=== PATIENT | male | born 1955 | race Caucasian/White ===

== ENCOUNTER 2023-01-27 16:18 | Emergency (ER) | payer MEDICARE, OTHER ==
--- NOTE | 2023-01-27 16:41 | ED Physician Documentation ---
PD HPI URI - Stated complaint Stated Complaint: COUGH,SOA - Chief complaint Chief Complaint: General - History obtained from History obtained from: Patient - History of Present Illness Timing - onset: How many weeks ago (1) Timing duration: Weeks (1) Timing details: Gradual onset, Still present (He started with a cough and wheezing and short of breath about a week ago. General malaise. No fevers per se. Coincidentally had an appoint with his primary care and told likely virus. Increased cough and seen at walk-in clinic several days ago and prescribed albuterol inhaler, 1 dose steroid.) Associated symptoms: Chills, Nasal congestion, Dry cough, Chest pain (pain with coughing right side shoulder area and right upper abd. No pain with movement nor eating.), Dyspnea (with wheezing). No: Fever, Productive cough Contributing factors: Other (history of pacemaker. No CHF. No COPD. Has inhaler at home to use PRN illness. History of renal insufficiency with recent creatinine 3.). No: Sick contact, COPD / asthma Improves by: MDI/nebulizer, Other (he did notice feeling lightheaded today.) Worsened by: Activity Similar symptoms before: Has not had sx before Recently seen: Clinic Review of Systems Constitutional: reports: Chills, Myalgias, Fatigue (feeling weak and lightheaded today.). denies: Fever Nose: reports: Congestion. denies: Rhinorrhea / runny nose Throat: denies: Sore throat Cardiac: reports: Chest pain / pressure (the past 1-2 days with coughing.). denies: Palpitations, Pedal edema, Calf pain Respiratory: reports: Dyspnea, Cough, Wheezing GI: reports: Nausea. denies: Abdominal Pain, Vomiting, Diarrhea Musculoskeletal: denies: Neck pain, Back pain Neurologic: reports: Generalized weakness. 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 ), Other (pacemaker) Respiratory: None Neuro: None Endocrine/Autoimmune: None - Present Medications Home Medications: Ambulatory Orders Medication Instructions Recorded Confirmed Aspirin [Lamont Aspirin] 81 mg PO DAILY 01/27/23 01/27/23 Cholesterol Med 20 mg PO DAILY 01/27/23 Rosuvastatin Calcium 20 mg PO DAILY 01/27/23 - Allergies Allergies/Adverse Reactions: Allergies Allergy/AdvReac Type Severity Reaction Status Date / Time No Known Drug Allergies Allergy Verified 01/27/23 16:23 PD ED PE NORMAL - Vitals Vital signs reviewed: Yes (BP slightly low) - General General: Alert and oriented X 3, No acute distress, Well developed/nourished - Neck Neck: Supple, no meningeal sign, No adenopathy - Cardiac Cardiac: RRR, No murmur - Respiratory Respiratory: No respiratory distress. No: Clear bilaterally (general exp wheezing. Coarse sound right lower. No fine crackles. Normal conversation ability. No accessory muscle use. ) - Abdomen Abdomen: Soft, Non tender, No organomegaly - Derm Derm: Normal color, Warm and dry - Extremities Extremities: Normal ROM s pain, No edema, No calf tenderness / cord - Neuro Neuro: Alert and oriented X 3, No motor deficit, Normal speech Results - Vitals Vitals: Vital Signs - 24 hr 01/27/23 01/27/23 01/27/23 16:23 16:35 18:02 Temperature 36.5 C Heart Rate 60 62 Respiratory 16 18 16 Rate Blood Pressure 96/66 O2 Saturation 98 Oxygen O2 Source Room air - Labs Labs: Laboratory Tests 01/27/23 01/27/23 01/27/23 17:14 17:14 17:14 WBC 6.3 RBC 3.84 L Hgb 11.0 L Hct 33.0 L MCV 85.9 MCH 28.6 MCHC 33.3 RDW 14.2 Plt Count 223 MPV 10.0 Neut # (Auto) 4.6 Lymph # (Auto) 1.0 L [place] # (Auto) 0.6 Eos # (Auto) 0.1 Baso # (Auto) 0.0 Absolute Nucleated RBC 0.00 Nucleated RBC % 0.0 Sodium 136 Potassium 4.4 Chloride 106 Carbon Dioxide 23 Anion Gap 7.0 BUN 60 H Creatinine 3.3 H Estimated GFR (MDRD) 19 L Glucose 108 H Lactic Acid Calcium 9.0 Total Bilirubin 0.5 AST 24 ALT 22 Alkaline Phosphatase 200 H Troponin I High Sens 56.5 H* B-Natriuretic Peptide Total Protein 6.4 L Albumin 3.7 Globulin 2.7 Albumin/Globulin Ratio 1.4 Lipase 59 H 01/27/23 01/27/23 17:14 17:14 WBC RBC Hgb Hct MCV MCH MCHC RDW Plt Count MPV Neut # (Auto) Lymph # (Auto) [place] # (Auto) Eos # (Auto) Baso # (Auto) Absolute Nucleated RBC Nucleated RBC % Sodium Potassium Chloride Carbon Dioxide Anion Gap BUN Creatinine Estimated GFR (MDRD) Glucose Lactic Acid 0.7 Calcium Total Bilirubin AST ALT Alkaline Phosphatase Troponin I High Sens B-Natriuretic Peptide 134 H Total Protein Albumin Globulin Albumin/Globulin Ratio Lipase - Rads (name of study) chest xray Relevant Findings:: Prelim report reviewed (lower infiltrate. no effusion. no vascular congestion.), EMP independent interpretation of test (lower infiltrates bilaterally c/w likely pneumonia. ), See rad report PD Medical Decision Making - ED course Complexity details: reviewed results (The patient was having a slightly lower blood pressure and also some chest pain though it was more pleuritic and with coughing. Seems muscular. However we did do BNP and troponin. Also white count and lactate to evaluate for potential sepsis especially in light of a slightly low blood pressure.), considered differential (Progressive cough with now pleuritic pain. Chest x-ray will be obtained to evaluate for progression to pneumonia. He is wheezy though his sats are good and we can do a nebulizer. No history of COPD but does have wheezing. Consider steroid as well.), d/w patient Reviewed Lab Results: White count and lactate are normal. No signs of obvious sepsis. His creatinine is 3.3 with his stated baseline recently of 3. Main electrolytes are good. His troponin is slightly elevated at 56. This can be partly influenced by his renal insufficiency with a creatinine of 3.3. However concern would be for some stress on the cardiovascular system related to his coughing and likely developing pneumonia. We will repeat the troponin in a couple of hours. If its plateaued, then it may be just some stress on this cardiovascular system and again some influence from his renal insufficiency. If escalating level then more concerning for heart injury per se. His blood pressure was also slightly low which likely is volume related as there is no indication of sepsis per se. He is given IV fluids and we are still reassessing his blood pressure with that.
[2023-01-27] MEDS ORDERED: SODIUM CHLORIDE 0.9% 500 ML IV STA ×2 (17:05→18:00)
[2023-01-27] MEDS ORDERED: ALBUTEROL NEB 2.5 MG/3 ML INH STA (17:06)
[2023-01-27] MEDS ORDERED: DEXAMETHASONE 10 MG/ML VIAL IVP STA (17:06)
[2023-01-27] MEDS ORDERED: KETOROLAC 15 MG/ML VIAL IVP STA (17:07)
[2023-01-27 17:24] LABS: BASOPHILS % (AUTO) 0.2 %; EOSINOPHILS # (AUTO) 0.1 10^3/uL (0.0-0.7); EOSINOPHILS % (AUTO) 1.4 %; LYMPHOCYTES % (AUTO) 16.5 %; MEAN CORPUSCULAR HEMOGLOBIN 28.6 pg (27.0-31.0); MEAN CORPUSCULAR HGB CONC 33.3 g/dL (32.0-36.0); MEAN CORPUSCULAR VOLUME 85.9 fL (80.0-94.0); MONOCYTES # (AUTO) 0.6 10^3/uL (0.0-1.0); MONOCYTES % (AUTO) 8.8 %; NEUTROPHILS # (AUTO) 4.6 10^3/uL (1.5-6.6); NEUTROPHILS % (AUTO) 72.8 %; PLT - PLATELET COUNT 223 10^3/uL (130-450); RED BLOOD COUNT 3.84 10^6/uL (4.70-6.10); RED CELL DISTRIBUTION WIDTH 14.2 % (12.0-15.0); WHITE BLOOD COUNT 6.3 x10^3/uL (4.8-10.8)
--- NOTE | 2023-01-27 17:28 | XRAY Report ---
PROCEDURE: Chest 1 View X-Ray INDICATIONS: chest pain TECHNIQUE: One view of the chest was acquired. COMPARISON: None. FINDINGS: Surgical changes and devices: There is a cardiac pacemaker in expected position. Lungs and pleura: Left basilar opacities may be infiltrate or atelectasis. No pleural effusions or p neumothorax. Mediastinum: Mediastinal contours appear normal. Heart size is normal. Bones and chest wall: No suspicious bony lesions. Overlying soft tissues appear unremarkable. IMPRESSION: Left lower lobe opacity may be pneumonia versus atelectasis. Recommend clinical correlation. Reviewed by: Clifton Wild MD on 01/27/2023 5:26 PM PDT Approved by: Clifton Wild MD on 01/27/2023 5:26 PM PDT Station ID: [id number]
[2023-01-27 17:33] LABS: ALBUMIN 3.7 g/dL (3.2-5.5); ALBUMIN/GLOBULIN RATIO 1.4 (1.0-2.2); BILIRUBIN,TOTAL 0.5 mg/dL (0.2-1.0); CREATININE 3.3 mg/dL (0.6-1.2); POTASSIUM 4.4 mmol/L (3.5-5.0); TOTAL PROTEIN 6.4 g/dL (6.7-8.2)
[2023-01-27] MEDS ORDERED: AMOX/CLAV 875 MG/125 MG TABLET PO STA (17:45)
[2023-01-27] MEDS ORDERED: HYDROcod/ACETAM 5/325 MG TABLET PO STA (20:27)
[2023-01-27] MEDS ORDERED: DOXYCYCLINE 100 MG TABLET PO STA (20:27)
--- NOTE | 2023-01-27 20:31 | ED Physician Documentation ---
ED Addendum - Addendum Addendum: 01/27/23 20:28 Patient was signed out to me by Dr. Israel awaiting repeat troponin. Repeat troponin is lower than the first. Likely chronic troponin leak from his chronic kidney disease. Patient is well-appearing, nontoxic. Afebrile. He he is not hypoxic. He is not audibly wheezing. Appears to have pneumonia on chest x-ray. We will place him on Augmentin and doxycycline. He is also having chest wall pain from coughing, we will place him on hydrocodone for this. He has a inhaler and he was given a spacer and spacer teaching. Patient will follow-up with his doctor in 1 week if he is not feeling better. Patient counseled regarding signs and symptoms for which I believe and urgent re-evaluation would be necessary. Patient with good understanding of and agreement to plan and is comfortable going home at this time This document was made in part using voice recognition software. While efforts are made to proofread this document, sound alike and grammatical errors may occur. Departure - Departure Disposition: 01 Home, Self Care Clinical Impression: Pneumonia Qualifiers: Pneumonia type: due to unspecified organism Laterality: unspecified laterality Lung location: unspecified part of lung Qualified Code(s): J18.9 - Pneumonia, unspecified organism Condition: Good Instructions: ED Pneumonia Adult Follow-Up: NAYLA MARSHALL [Primary Care Provider] - Within 1 week Prescriptions: Amox/Clav 875/125 [Augmentin] 1 tab PO Q12H #20 tablet predniSONE [Deltasone] 40 mg PO DAILY #10 tablet Doxycycline Monohydrate 100 mg PO BID #20 cap HYDROcod/ACETAM 5/325 [Triplett 5/325] 1 - 2 ea PO Q6H PRN #14 tablet PRN Reason: Pain Comments: Your prescriptions were sent to [facility] on [address] in [place]. You appear to have pneumonia on your chest x-ray today. If you are not feeling better in 1 week, you should have a repeat chest x-ray with your doctor. Please use your inhaler with the spacer as shown tonight. Please take all antibiotics until gone. You can use the pain medication as needed at home. The cough should improve as the pneumonia improves. I am prescribing a short course of narcotic pain medication for you. These are potentially dangerous and addictive medications that should be used carefully. These medications may constipate you. Take an [id number] stool softener (docusate) twice daily with plenty of water while taking these medications. If you go 24 hours without a bowel movement, take [id number] miralax, per package instructions. Do not drink or drive while taking these medications. If you received narcotic or sedating medications while in the emergency department, do not drive for 24 hours. Store this medication in a safe, secure place and out of reach of children. It is a violation of federal law to give or sell this medication to another person or to use in a manner other than prescribed. The ED will not refill narcotic prescriptions, including prescriptions lost or stolen. To dispose of unwanted medications: 1. [facility] at [address] in [place] has a medication drop box. They accept prescription medications (in pill form) Tuesday through Tuesday 9:00 a.m. to 5:00 p.m. 2. The [facility] [employer] accepts prescription medications (in pill form only) for disposal year round. Call for more information. 3. Contact the [facility] for the next [facility] sponsored prescription drug collection event. , [phone], or [phone];
[2023-01-27 20:47] VITALS: BP 99/63
== END 2023-01-27 20:55 | disposition home or self-care (01) ==
LOC: ED 16:18
DX: J18.9 Pneumonia, unspecified organism (principal); I95.9 Hypotension, unspecified; N18.9 Chronic kidney disease, unspecified
CPT/HCPCS: 36415; 71045; 80053; 83605; 83690; 83880; 84484; 85025; 93005; 94640; 99281; 99284; A9270

== ENCOUNTER 2023-07-10 20:38 | Outpatient (CLI) | payer MEDICARE, OTHER | END 2023-07-10 23:59 | disposition critical access hospital (66) | LOC: EMS 20:38 | DX: R53.81 Other malaise (principal); R53.1 Weakness; R09.89 Other specified symptoms and signs involving the circulatory and respiratory systems; R61 Generalized hyperhidrosis | CPT/HCPCS: A0425; A0427 ==

== ENCOUNTER 2023-07-10 20:56 | Emergency (ER) | payer MEDICARE, OTHER ==
[2023-07-10 21:11] LABS: BASOPHILS % (AUTO) 0.1 %; EOSINOPHILS # (AUTO) 0.1 10^3/uL (0.0-0.7); EOSINOPHILS % (AUTO) 1.4 %; LYMPHOCYTES # (AUTO) 1.3 10^3/uL (1.5-3.5); LYMPHOCYTES % (AUTO) 17.3 %; MEAN CORPUSCULAR HEMOGLOBIN 30.4 pg (27.0-31.0); MEAN CORPUSCULAR HGB CONC 29.9 g/dL (32.0-36.0); MEAN CORPUSCULAR VOLUME 101.9 fL (80.0-94.0); MEAN PLATELET VOLUME 10.3 fL (7.4-11.4); MONOCYTES # (AUTO) 0.6 10^3/uL (0.0-1.0); MONOCYTES % (AUTO) 8.4 %; NEUTROPHILS # (AUTO) 5.3 10^3/uL (1.5-6.6); NEUTROPHILS % (AUTO) 72.4 %; NRBC ABSOLUTE COUNT (AUTO) 0.03 x10^3/uL; NUCLEATED RED BLOOD CELLS AUTO 0.4 /100WBC; PLT - PLATELET COUNT 182 10^3/uL (130-450); RED BLOOD COUNT 1.61 10^6/uL (4.70-6.10); RED CELL DISTRIBUTION WIDTH 18.5 % (12.0-15.0); WHITE BLOOD COUNT 7.4 x10^3/uL (4.8-10.8)
--- NOTE | 2023-07-10 21:13 | ED Physician Documentation ---
History of Present Illness - Stated complaint Stated Complaint: AMS,WEAKNESS, GASTRIC CA - History obtained from History obtained from: Patient, EMS - Additonal information Additional information: 68-year-old male with history of gastric cancer, chronic renal failure, coronary artery disease status post stent, pacemaker, unspecified obstructive lung disease with home albuterol inhaler recent transfusion of 8 units of PRBC 2 weeks ago in [place] presents with altered mental status, weakness prompting EMS call this evening. Patient reports he has been having dark stools. Blood pressure 56/27 on scene, improving status post 1.5 L of normal saline to 82/32 1 most recent blood pressure. Also with glucose 238 without prior history of diabetes or hyperglycemia. Patient denies abdominal pain, nausea, vomiting, blood in stool. Denies urinary symptoms or back pain. Denies fever. 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 ), Other (pacemaker) Respiratory: None Neuro: None Endocrine/Autoimmune: None GI: None : None HEENT: None Psych: Depression Musculoskeletal: None Derm: None - Past Surgical History Past Surgical History: Yes General: Other Ortho: Other Cardiovascular: Coronary stent HEENT: Tonsil/Adenoidectomy - Present Medications Home Medications: Ambulatory Orders Medication Instructions Recorded Confirmed Aspirin [Labette Aspirin] 81 mg PO DAILY 01/27/23 07/10/23 Cholesterol Med 20 mg PO DAILY 01/27/23 Rosuvastatin Calcium 20 mg PO DAILY 01/27/23 07/10/23 ARIPiprazole [Aripiprazole] 10 mg PO DAILY 07/10/23 07/10/23 Amlodipine Besylate [Norvasc] 2.5 mg PO DAILY 07/10/23 07/10/23 Ferrous Sulfate 1 tab PO DAILY 07/10/23 07/10/23 Magnesium Oxide [Magnesium] 400 mg PO DAILY 07/10/23 07/10/23 Ondansetron [Ondansetron Odt] 8 mg PO Q8HR PRN 07/10/23 07/10/23 Prochlorperazine Maleate 10 mg PO Q6HR PRN 07/10/23 07/10/23 Sertraline HCl 100 mg PO DAILY 07/10/23 07/10/23 lamoTRIgine [LaMICtal] 50 mg PO DAILY 07/10/23 07/10/23 lamoTRIgine [Lamictal] 300 mg PO DAILY 07/10/23 07/10/23 oxyCODONE [Roxicodone] 5 mg PO Q6HR PRN 07/10/23 07/10/23 - Allergies Allergies/Adverse Reactions: Allergies Allergy/AdvReac Type Severity Reaction Status Date / Time No Known Drug Allergies Allergy Verified 07/10/23 22:44 - Social History Does the pt smoke?: No Smoking Status: Never smoker Does the pt drink ETOH?: Yes Does the pt have substance abuse?: No - Immunizations Immunizations are current?: Yes - POLST Patient has POLST: No PD ED PE NORMAL - Vitals Vital signs reviewed: Yes - General General: Alert and oriented X 3, No acute distress, Other (Deconditioned appearing) - HEENT HEENT: Atraumatic, PERRL, EOMI - Neck Neck: Supple, no meningeal sign - Cardiac Cardiac: RRR - Respiratory Respiratory: No respiratory distress, Clear bilaterally - Abdomen Abdomen: Non tender, Other (Mildly distended) - Back Back: No CVA TTP - Derm Derm: Normal color, Warm and dry - Neuro Neuro: Alert and oriented X 3 Results - Vitals Vitals: Vital Signs - 24 hr 07/10/23 07/10/23 07/10/23 21:37 21:45 22:30 Temperature 36.3 C L 36.3 C L 36.2 C L Heart Rate 80 80 Heart Rate [ 74 Monitoring electrodes] Respiratory 18 18 22 Rate Blood Pressure 88/53 L 88/53 L Blood Pressure 105/54 L [Left Brachial artery] O2 Saturation 100 100 100 07/10/23 07/10/23 07/10/23 22:49 23:00 23:15 Temperature 36.2 C L 37.1 C Heart Rate 71 73 Heart Rate [ 73 72 Monitoring electrodes] Respiratory 21 23 21 Rate Blood Pressure 107/56 L 101/62 Blood Pressure 107/56 L [Left Brachial artery] O2 Saturation 100 100 100 07/10/23 07/11/23 07/11/23 23:59 00:15 00:26 Temperature 36.3 C L 36 C L 36.1 C L Heart Rate Heart Rate [ 74 69 71 Monitoring electrodes] Respiratory 21 21 23 Rate Blood Pressure Blood Pressure 123/64 114/95 H 120/69 [Left Brachial artery] O2 Saturation 100 100 100 07/11/23 07/11/23 07/11/23 00:29 00:50 01:05 Temperature 36.3 C L 36.6 C Heart Rate 69 Heart Rate [ 82 65 Monitoring electrodes] Respiratory 22 18 24 Rate Blood Pressure 114/95 H Blood Pressure 143/72 H 137/85 H [Left Brachial artery] O2 Saturation 100 100 100 07/11/23 07/11/23 07/11/23 01:06 01:20 02:00 Temperature 36.3 C L Heart Rate 65 70 Heart Rate [ 68 Monitoring electrodes] Respiratory 22 21 22 Rate Blood Pressure 138/81 H 141/70 H Blood Pressure 128/78 [Left Brachial artery] O2 Saturation 100 100 100 07/11/23 07/11/23 07/11/23 02:40 03:00 03:30 Temperature Heart Rate 67 69 67 Heart Rate [ Monitoring electrodes] Respiratory 20 18 16 Rate Blood Pressure 134/67 H 127/70 144/86 H Blood Pressure [Left Brachial artery] O2 Saturation 100 100 99 07/11/23 07/11/23 07/11/23 04:00 04:30 05:00 Temperature Heart Rate 67 70 69 Heart Rate [ Monitoring electrodes] Respiratory 16 19 15 Rate Blood Pressure 147/82 H 135/75 H 124/63 Blood Pressure [Left Brachial artery] O2 Saturation 100 100 100 07/11/23 06:43 Temperature Heart Rate 64 Heart Rate [ Monitoring electrodes] Respiratory 17 Rate Blood Pressure 131/72 H Blood Pressure [Left Brachial artery] O2 Saturation 94 Oxygen O2 Source Room air - Labs Labs: Laboratory Tests 07/10/23 07/10/23 07/10/23 21:05 21:05 21:05 WBC 7.4 RBC 1.61 L Hgb 4.9 L* Hct 16.4 L* MCV 101.9 H MCH 30.4 MCHC 29.9 L RDW 18.5 H Plt Count 182 MPV 10.3 Neut # (Auto) 5.3 Lymph # (Auto) 1.3 L [place] # (Auto) 0.6 Eos # (Auto) 0.1 Baso # (Auto) 0.0 Absolute Nucleated RBC 0.03 Nucleated RBC % 0.4 PT INR Sodium 139 Potassium 3.6 Chloride 115 H Carbon Dioxide 12 L* Anion Gap 12.0 BUN 53 H Creatinine 2.6 H Estimated GFR (MDRD) 25 L Glucose 187 H Calcium 7.7 L Total Bilirubin 0.3 AST 15 ALT 9 L Alkaline Phosphatase 92 Total Protein 4.4 L Albumin 3.0 L Globulin 1.4 L Albumin/Globulin Ratio 2.1 Lipase 97 H Blood Type Blood Type Recheck A POSITIVE Antibody Screen Crossmatch IS Only 07/10/23 07/10/23 07/11/23 21:26 21:26 03:05 WBC 6.0 RBC 2.29 L Hgb 6.6 L* Hct 20.2 L MCV 88.2 MCH 28.8 MCHC 32.7 RDW 17.2 H Plt Count 131 MPV 9.7 Neut # (Auto) 4.9 Lymph # (Auto) 0.6 L [place] # (Auto) 0.4 Eos # (Auto) 0.0 Baso # (Auto) 0.0 Absolute Nucleated RBC 0.00 Nucleated RBC % 0.0 PT 13.7 H INR 1.3 H Sodium Potassium Chloride Carbon Dioxide Anion Gap BUN Creatinine Estimated GFR (MDRD) Glucose Calcium Total Bilirubin AST ALT Alkaline Phosphatase Total Protein Albumin Globulin Albumin/Globulin Ratio Lipase Blood Type A POSITIVE Blood Type Recheck Antibody Screen NEGATIVE Crossmatch IS Only See Detail 07/11/23 03:05 WBC RBC Hgb Hct MCV MCH MCHC RDW Plt Count MPV Neut # (Auto) Lymph # (Auto) [place] # (Auto) Eos # (Auto) Baso # (Auto) Absolute Nucleated RBC Nucleated RBC % PT INR Sodium 140 Potassium 3.8 Chloride 117 H Carbon Dioxide 15 L Anion Gap 8.0 BUN 51 H Creatinine 2.5 H Estimated GFR (MDRD) 26 L Glucose 113 H Calcium 7.5 L Total Bilirubin AST ALT Alkaline Phosphatase Total Protein Albumin Globulin Albumin/Globulin Ratio Lipase Blood Type Blood Type Recheck Antibody Screen Crossmatch IS Only PD Medical Decision Making - ED course ED course: 68-year-old man with history of gastric cancer and multiorgan disease presents with hypotension in the setting confusion and weakness tonight after being transfused 8 units of PRBC in [place] for GE junction bleeding tumor 2 weeks ago. CBC, abdominal panel, coags, type and screen ordered and plan is for blood transfusion pending h &h given patient is symptomatically improved with good BP on arrival. Patient anemic with Hb 4.9. d/w Dr. Narayan, surgeon communications systems engineer who recommends transfer to higher level facility since patient has complicated gastric cancer. He states it is reasonable to admit for blood transfusions with understanding that if he needs emergent gastrectomy he will need transfer. as of now patient is asymptomatic with normotensive vitals. 3U PRBC ordered. Patient hypotensive 70s/40s. levophed drip ordered and will prep PRBC stat for rapid transfusion. d/w transfer center and ICU attending to call back. Patient has been tolerating blood transfusion without need for levophed drip thus far. d/w oncologist Dr. Hamilton and MICU attending Dr. Hamilton at - Dr. Hamilton requesting emergent transfer. Dr. Hamilton accepts patient in transfer but she states due to high volumes with is unable to provide a bed for him at this time. She requests we reach back out in AM. Plan to transfuse overnight and endorse to incoming daytime ED MD at 7am shift change. - Critical Care Time(min): 60 Time Includes: Direct patient care, Review records, Reassess patient, Document care, Coordinate care, Medical consult Data interpretation: See progress note Procedures included in critical care time: See progress note Procedures excluded from critical care time: See progress note Departure - Departure Clinical Impression: Hypotension, Weakness, Confusion, Anemia Condition: Fair Forms: PCP List
[2023-07-10 21:14] LABS: HGB - HEMOGLOBIN 4.9 g/dL (14.0-18.0)
[2023-07-10 21:15] LABS: HCT - HEMATOCRIT 16.4 % (42.0-52.0)
[2023-07-10 21:33] LABS: ALBUMIN/GLOBULIN RATIO 2.1 (1.0-2.2); BILIRUBIN,TOTAL 0.3 mg/dL (0.2-1.0); CALCIUM 7.7 mg/dL (8.5-10.3); CREATININE 2.6 mg/dL (0.6-1.3); POTASSIUM 3.6 mmol/L (3.5-4.5); TOTAL PROTEIN 4.4 g/dL (6.4-8.9)
[2023-07-10 22:10] LABS: INR 1.3 (0.8-1.2); PT - PROTHROMBIN TIME 13.7 secs (9.9-12.6)
[2023-07-10] MEDS ORDERED: NOREPINEPHRINE/0.9 % NS 8 MG/250 ML BAG IV SCH (23:00)
[2023-07-10] MEDS ORDERED: iohexoL-300 100 ML VIAL IVP ONE (23:54)
[2023-07-11] MEDS ORDERED: ACETAMINOPHEN 500 MG TABLET PO PRN (00:23)
[2023-07-11] MEDS ORDERED: ONDANSETRON 4 MG/2 ML VIAL IVP PRN (00:23)
--- NOTE | 2023-07-11 01:23 | CT Report ---
PROCEDURE: ANGIO ABDOMEN W/WO INDICATIONS: GIB, gastric cancer, bleeding gastric mass, weak CONTRAST: : Intravenous contrast TECHNIQUE: Arterial phase phase scanning was performed with intravenous contrast. After the administration of i ntravenous contrast, 3mm thick sections acquired from the diaphragm to the iliac crest. Coronal and s agittal reformats were acquired. COMPARISON: None available FINDINGS: Quality: Hyperdense material at the inferior aspect of the stomach looks evaluation of surrounding so ft tissue. Lung bases and heart: Minimal dependent atelectasis. Liver: Hepatic cyst. Gallbladder and biliary tree: Unremarkable. Bile ducts measure within normal limits. Spleen: Unremarkable. Pancreas: Unremarkable. Adrenals: No nodules. Kidneys: Bilateral renal cysts. Stomach, bowel and peritoneum: There is abnormal gastric wall thickening. No discrete mass visualized on single arterial phase. No evidence of small bowel obstruction. No pneumoperitoneum or ascites. . Lymph nodes: No central or retroperitoneal adenopathy. Vessels: No aortic aneurysm. Celiac artery stent is in place. There is hyperdense material seen along the splenic artery limiting evaluation of surrounding soft tissues and vasculature. No evidence of c ontrast extravasation within the stomach or visualized abdomen to suggest acute bleed. Mild degenerative changes of the visualized spine. T12 vertebral body hemangioma. IMPRESSION: No contrast extravasation to suggest acute arterial bleed. Abnormal stomach wall thickening without discrete mass visualized on single arterial phase study. Hyp erdense material along the splenic artery coursed limits evaluation of adjacent soft tissue/stomach a nd vasculature. Celiac artery stent in place. Reviewed by: Dian Barillas MD on 07/11/2023 1:21 AM [facility] Approved by: Dian Barillas MD on 07/11/2023 1:21 AM PST Station ID: [id number]
[2023-07-11 03:12] LABS: BASOPHILS % (AUTO) 0.3 %; EOSINOPHILS % (AUTO) 0.2 %; HCT - HEMATOCRIT 20.2 % (42.0-52.0); LYMPHOCYTES # (AUTO) 0.6 10^3/uL (1.5-3.5); MEAN CORPUSCULAR HEMOGLOBIN 28.8 pg (27.0-31.0); MEAN CORPUSCULAR HGB CONC 32.7 g/dL (32.0-36.0); MEAN CORPUSCULAR VOLUME 88.2 fL (80.0-94.0); MEAN PLATELET VOLUME 9.7 fL (7.4-11.4); MONOCYTES # (AUTO) 0.4 10^3/uL (0.0-1.0); MONOCYTES % (AUTO) 7.3 %; NEUTROPHILS # (AUTO) 4.9 10^3/uL (1.5-6.6); PLT - PLATELET COUNT 131 10^3/uL (130-450); RED BLOOD COUNT 2.29 10^6/uL (4.70-6.10); RED CELL DISTRIBUTION WIDTH 17.2 % (12.0-15.0)
[2023-07-11 03:25] LABS: HGB - HEMOGLOBIN 6.6 g/dL (14.0-18.0)
[2023-07-11 05:21] LABS: CALCIUM 7.5 mg/dL (8.5-10.3); CREATININE 2.5 mg/dL (0.6-1.3); POTASSIUM 3.8 mmol/L (3.5-4.5)
[2023-07-11] MEDS ORDERED: PANTOPRAZOLE 40 MG VIAL IVP STA (06:58)
[2023-07-11] MEDS ORDERED: PANTOPRAZOLE 40 MG TABLET PO SCH (07:00)
[2023-07-11 09:06] VITALS: O2SAT 100
[2023-07-11 10:47] LABS: HCT - HEMATOCRIT 19.7 % (42.0-52.0); HGB - HEMOGLOBIN 6.7 g/dL (14.0-18.0)
[2023-07-11 14:27] VITALS: BP 119/69
--- NOTE | 2023-07-24 14:20 | ED Physician Documentation ---
ED Addendum - Addendum Addendum: 07/24/23 14:19 Patient received a signout from outgoing physician, please see their do cumentation for further detail. In short patient 68-year-old male with history advanced gastric cancer presenting to the emergency department with hypotension and evidence of large- volume GI bleeding. Received multiple units PRBCs from the off going physician. Upon my initial evaluation patient hemodynamically stable. Hemoglobin however remained marginal on recheck and I did order for an additional unit irradiated PRBCs to be administered here in the emergency department. Care was discussed with the oncology team as well as the MICU team at [facility] who graciously agreed to accept the patient in transfer. Final diagnosis is upper GI bleed.
== END 2023-07-11 14:55 | disposition short-term general hospital (02) ==
LOC: EDUNIT# → ED 20:56
DX: I95.9 Hypotension, unspecified (principal); R53.1 Weakness; R41.0 Disorientation, unspecified; N18.9 Chronic kidney disease, unspecified; D63.1 Anemia in chronic kidney disease; K92.2 Gastrointestinal hemorrhage, unspecified; C16.9 Malignant neoplasm of stomach, unspecified; Z95.0 Presence of cardiac pacemaker; Z79.82 Long term (current) use of aspirin; Z79.899 Other long term (current) drug therapy
CPT/HCPCS: 36415; 36430; 74175; 80048; 80053; 83690; 85014; 85018; 85025; 85610; 86850; 86900; 86901; 86920; 99291; A9270; P9040; Q9967